=== PATIENT | male | born 1960 | race Asian ===

== ENCOUNTER 2024-01-21 13:03 | Emergency (ER) | payer MEDICARE, SELFPAY ==
[2024-01-21] VITALS (15 sets, daily range): BP systolic 108–164; BP diastolic 65–77; PULSE 66–75; RESP 16; TEMP 36.4–36.6; O2SAT 97–99; BMI 25.2
[2024-01-21 13:44] LABS: Add Manual Diff / Slide Review NO; Basophils Absolute Auto 0 /uL (0-100); Basophils Percent Auto 0.5 % (0-2); Eosinophils Absolute Auto 200 /uL (0-450); Eosinophils Percent Auto 3.6 % (2-4); Hematocrit 37.2 % (41-53); Hemoglobin 11.8 g/dL (13.5-17.5); Lymphocytes Absolute Auto 2000 /uL (1100-4500); Lymphocytes Percent Auto 34.5 % (25-40); Mean Corpuscular HGB Conc 31.6 % (30-36); Mean Corpuscular Hemoglobin 22.4 PG (26-34); Mean Corpuscular Volume 70.8 fL (80-100); Monocytes Absolute Auto 400 /uL (0-900); Monocytes Percent Auto 6.2 % (3-14); Neutrophils Absolute Auto 3200 /uL (1500-7000); Neutrophils Percent Auto 55.2 % (50-75); Platelet Count 92 X10^3/uL (150-400); Red Blood Cell Count 5.26 X10^6/uL (4.5-5.9); Red Cell Distribution Width 13.6 % (11.6-14.8); White Blood Cell Count 5.8 X10^3/uL (4.5-11.0)
[2024-01-21 13:52] LABS: Alanine Aminotransferase 100 IU/L (<50); Albumin 3.7 g/dL (3.5-5.0); Alkaline Phosphatase 178 U/L (38-126); Aspartate Aminotransferase 102 IU/L (17-59); BUN Creatinine Ratio 15.7 (6-22); Bilirubin Total 1.2 mg/dL (0.2-1.3); Blood Urea Nitrogen 14 mg/dL (9-20); Calcium 8.7 mg/dL (8.4-10.2); Carbon Dioxide 26 mmol/L (22-32); Chloride 101 mmol/L (98-107); Estimated Glomerular Filt Rate > 60 mL/min (>60); Globulin 3.8 g/dL (1.7-4.1); Glucose 387 mg/dL (80-110); HEMOLYSIS < 15 (0-50); Lipase 137 U/L (23-300); Potassium 4.2 mmol/L (3.4-5.1); Sodium 132 mmol/L (137-145); Total Protein 7.5 g/dL (6.3-8.2)
--- NOTE | 2024-01-21 14:36 | EKG_ITS ---
[address] [address] Test Date: 2024-01-21 Pat Name: kimberlyn Calixto Department: [facility] Room: Gender: Male Label Stamper: ROSENDA : 1960 Requested By: Order Number: [id number] Reading MD: Raymond Kumar MD Measurements Intervals [place] Rate: 70 P: 59 HI: 180 QRS: 28 QRSD: 80 T: 25 QT: 386 QTc: 416 Interpretive Statements Normal sinus rhythm Electronically Signed On 01-22-2024 8:35:29 PDT by Raymond Kumar MD
--- NOTE | 2024-01-21 16:27 | ED.ABDPAIN ---
HPI - Abdominal Pain General Chief Complaint: Abdominal Pain Stated Complaint: tired abd pain not feeling well Time Seen by Provider: 01/21/24 15:06 Source: patient Mode of arrival: Ambulatory History of Present Illness HPI narrative: Patient 63-year-old male history of diabetes, admits to drinking alcohol daily but says it is only 1 can, presents today with abdominal pain. Does not appear that he is having any now. He has no nausea or vomiting. No chest pain or shortness of breath. Related Data Allergies Allergy/AdvReac Type Severity Reaction Status Date / Time No Known Drug Allergies Allergy Verified 01/21/24 13:10 Patient History Social History Smoking Status: Current every day smoker Smoking Status: Current every day smoker alcohol intake frequency: 0-2 drinks per day Substance Use Type: does not use Exam Initial Vital Signs Initial Vital Signs: Vital Signs Temperature 97.5 F L 01/21/24 13:10 Pulse Rate 75 01/21/24 13:10 Respiratory Rate 16 01/21/24 13:10 Blood Pressure 108/73 01/21/24 13:10 Pulse Oximetry 99 01/21/24 13:10 Oxygen Delivery Method Room Air 01/21/24 13:10 GENERAL: Alert 63-year-old male and in no acute distress. HEENT: Head atraumatic,EOMI, pupils reactive, face symmetric, moist mucous membranes CARDIOVASCULAR: Regular rate and rhythm without murmurs, rubs or gallops. RESPIRATORY: Breath sounds equal bilaterally, no wheezes rales or rhonchi. ABDOMEN: Soft, nontender. Normoactive bowel sounds all 4 quadrants. No guarding or rebound. Negative hepatomegaly EXTREMITIES: Normal range of motion, no clubbing or edema. Neurovascularly intact NEUROLOGICAL: Alert and oriented x4.Normal gait and speech. Cranial nerves II through XII grossly intact. No tremor SKIN: Warm, dry, no laceration, no petechiae, no rashes or lesions. Course Orders Ordered: ED Orders 01/21/24 13:16 EKG-12 Lead Stat 01/21/24 13:31 Complete Blood Count AUTO DIFF Stat Comprehensive Metabolic Panel Stat Lipase Stat 01/21/24 16:39 CT abdomen pelvis w con Stat Ondansetron HCl (Ondansetron 4 Mg/2 Ml Inj) 4 mg IV NOW PRN PRN Reason: Nausea And Vomiting Ondansetron HCl (Ondansetron 4 Mg Odt) 4 mg PO NOW PRN PRN Reason: Nausea And Vomiting Vital Signs Vital signs: Vital Signs - 8 hr 01/21/24 13:10 01/21/24 14:25 01/21/24 14:26 Temperature 97.5 F L Pulse Rate 75 68 Respiratory Rate 16 Blood Pressure 108/73 Pulse Oximetry 99 97 99 Oxygen Delivery Method Room Air 01/21/24 14:26 01/21/24 14:30 01/21/24 14:30 Temperature Pulse Rate 73 Respiratory Rate Blood Pressure 127/68 128/71 Pulse Oximetry 98 Oxygen Delivery Method 01/21/24 15:00 01/21/24 15:00 01/21/24 15:30 Temperature Pulse Rate 72 68 Respiratory Rate Blood Pressure 124/68 Pulse Oximetry 98 98 Oxygen Delivery Method 01/21/24 15:30 01/21/24 16:00 01/21/24 16:00 Temperature Pulse Rate 66 Respiratory Rate Blood Pressure 144/77 H 147/77 H Pulse Oximetry 99 Oxygen Delivery Method 01/21/24 16:30 01/21/24 16:30 Temperature Pulse Rate 71 Respiratory Rate Blood Pressure 125/73 Pulse Oximetry 98 Oxygen Delivery Method MDM - Abdominal Pain Lab Data 01/21/24 13:31 01/21/24 13:31 Labs: Lab Results 01/21/24 Range/Units 13:31 WBC 5.8 (4.5-11.0) X10^3/uL RBC 5.26 (4.5-5.9) X10^6/uL Hgb 11.8 L (13.5-17.5) g/dL Hct 37.2 L (41-53) % MCV 70.8 L (80-100) fL MCH 22.4 L (26-34) PG MCHC 31.6 (30-36) % RDW 13.6 (11.6-14.8) % Plt Count 92 L (150-400) X10^3/uL Neut % (Auto) 55.2 (50-75) % Lymph % (Auto) 34.5 (25-40) % [place] % (Auto) 6.2 (3-14) % Eos % (Auto) 3.6 (2-4) % Baso % (Auto) 0.5 (0-2) % Neut # (Auto) 3200 (2072-7407) /uL Lymph # (Auto) 2000 (7198-7916) /uL [place] # (Auto) 400 (0-900) /uL Eos # (Auto) 200 (0-450) /uL Baso # (Auto) 0 (0-100) /uL Sodium 132 L (137-145) mmol/L Potassium 4.2 (3.4-5.1) mmol/L Chloride 101 (98-107) mmol/L Carbon Dioxide 26 (22-32) mmol/L BUN 14 (9-20) mg/dL Creatinine 0.89 (0.66-1.25) mg/dL Estimated GFR > 60 (>60) mL/min BUN/Creatinine Ratio 15.7 (6-22) Glucose 387 H (80-110) mg/dL Calcium 8.7 (8.4-10.2) mg/dL Total Bilirubin 1.2 (0.2-1.3) mg/dL AST 102 H (17-59) IU/L ALT 100 H (<50) IU/L Alkaline Phosphatase 178 H (38-126) U/L Total Protein 7.5 (6.3-8.2) g/dL Albumin 3.7 (3.5-5.0) g/dL Globulin 3.8 (1.7-4.1) g/dL Albumin/Globulin Ratio 1.0 (1.0-2.8) Lipase 137 (23-300) U/L Point of care testing: Point of Care Testing Glucose POC 279 Urine Dip Bedside Urine Glucose 1000 mg/dl Bedside Urine Bilirubin - Negative Bedside Urine Ketone +/- 5 Urine Specific [place] 1.015 Bedside Urine Occult Blood - Negative Bedside Urine pH 6.0 Bedside Urine Protein - Negative Bedside Urine Urobilinogen - Negative Bedside Urine Nitrite - Negative Bedside Urine Leukocytes - Negative Esterase Imaging Data CT scan - abdomen/pelvis: Radiologist's Impression: PROCEDURE: CT ABDOMEN PELVIS W CON INDICATIONS: ab pain elevated liver enzymes TECHNIQUE: After the administration of intravenous contrast, axial sections acquired from the lung bases to the pubic symphysis. Coronal and sagittal reformats were performed. For radiation dose reduction, the following was used: automated exposure control, adjustment of mA and/or kV according to patient size. COMPARISON: None. FINDINGS: Lower thorax: The lung bases are clear. Heart size normal. No hiatal hernia. Liver: The liver is diffusely decreased in attenuation without focal mass lesion. Liver is enlarged at 27 cm Biliary system: Dependent calcified stone noted as well. No intra or extrahepatic bile duct dilatation. Small hyperdensity adjacent to the nondependent wall may reflect small gallbladder wall polyp 4 mm. Pancreas: Unremarkable without mass or inflammation evident. Spleen: Normal in size and density. Adrenals: Normal morphology and density. Reproductive system: Unremarkable as visualized. Urinary system: Normal renal size and attenuation. No renal calculi, hydronephrosis, or solid mass present. Urinary bladder unremarkable. 1.2 cm right renal cortical cyst Gastrointestinal system: The bowel is unremarkable without evidence of bowel obstruction or inflammation. The stomach appears unremarkable. Appendix: Normal appendix identified. No evidence of appendicitis. Peritoneal spaces: Small retroperitoneal lymph nodes measure up to 1 cm with surrounding inflammatory changes. Vasculature: The IVC, aorta and iliac vasculature are unremarkable. Abdominal wall: Abdominal wall intact without evidence of ventral or inguinal hernias. Musculoskeletal: Normal bone mineralization. No acute fractures. IMPRESSION: Several small retroperitoneal lymph nodes all measure less than 1 cm with surrounding inflammatory changes may reflect acute retroperitoneal lymphadenitis. Hepatomegaly and hepatic fatty infiltration Cholelithiasis and small gallbladder wall polyp without evidence of acute cholecystitis Approved by: Malcolm García M.D. on 01/21/2024 at 17:22 ECG Data Attestation: I personally reviewed and interpreted this ECG as follows: Prior ECG tracings: not available for review Interpretation: Normal sinus rhythm rate 70 NH interval 180 QRS [address] changes no prior to compare MDM Narrative Medical decision making narrative: Patient is 63-year-old male history of diabetes presenting today with abdominal pain. Abdomen is soft and nontender on exam. Blood work has been reviewed he is found to have elevated AST of 102 ALT 100 alk-phos 178 bilirubin 1.2 lipase 137 Glucose 387, bicarb 26 creatinine 0.8 WBCs 5.8 hemoglobin 11.8 hematocrit 37.2 MCV 70 platelets 92 Patient is a known diabetic he is found to be hyperglycemic without evidence of DKA. He does not have an anion gap. He is found to have elevated liver enzymes with a normal bilirubin and a normal lipase. Abdomen is soft and minimally tender however he has a great historian. CT is ordered to rule out obstruction or mass. Imaging shows multiple retro peritoneal lymph nodes, less than 1 cm unclear significance also noted to have hepatomegaly with hepatic fatty infiltration EKGs no ischemia Patient is a elevated liver enzymes with hepatomegaly fatty infiltration possibly due to alcohol use he is also has some thrombocytopenia as well. CT does show retroperitoneal lymphadenitis in lymph nodes less than 1 cm. Unclear significance at this time. Recommend outpatient follow-up repeat imaging as needed Discharge Plan Departure Patient Disposition: Home Clinical Impression: Elevated liver enzymes, Acute lymphadenitis Activity Restrictions/Additional Instructions: *You have been diagnosed with elevated liver enzymes, abdominal lymph nodes *What to do: At this time please have your lymph nodes followed up with another CT and with your primary care provider. Please have repeat blood work in regards to your liver enzymes as well. Alcohol does not help liver is any decrease your alcohol *Continue to take medications as directed *Follow up with your primary care provider in 2-3 days or call [phone] *Return to ER if you should have increasing abdominal pain nausea vomiting fever or any new, worsening or concerning symptoms Stand Alone Forms: Patient Portal/API
--- NOTE | 2024-01-21 16:39 | DI.CT.S_ITS ---
PROCEDURE: CT ABDOMEN PELVIS W CON INDICATIONS: ab pain elevated liver enzymes TECHNIQUE: After the administration of intravenous contrast, axial sections acquired from the lung bases to the pubic symphysis. Coronal and sagittal reformats were performed. For radiation dose reduction, the following was used: automated exposure control, adjustment of mA and/or kV according to patient size. COMPARISON: None. FINDINGS: Lower thorax: The lung bases are clear. Heart size normal. No hiatal hernia. Liver: The liver is diffusely decreased in attenuation without focal mass lesion. Liver is enlarged at 27 cm Biliary system: Dependent calcified stone noted as well. No intra or extrahepatic bile duct dilatation. Small hyperdensity adjacent to the nondependent wall may reflect small gallbladder wall polyp 4 mm. Pancreas: Unremarkable without mass or inflammation evident. Spleen: Normal in size and density. Adrenals: Normal morphology and density. Reproductive system: Unremarkable as visualized. Urinary system: Normal renal size and attenuation. No renal calculi, hydronephrosis, or solid mass present. Urinary bladder unremarkable. 1.2 cm right renal cortical cyst Gastrointestinal system: The bowel is unremarkable without evidence of bowel obstruction or inflammation. The stomach appears unremarkable. Appendix: Normal appendix identified. No evidence of appendicitis. Peritoneal spaces: Small retroperitoneal lymph nodes measure up to 1 cm with surrounding inflammatory changes. Vasculature: The IVC, aorta and iliac vasculature are unremarkable. Abdominal wall: Abdominal wall intact without evidence of ventral or inguinal hernias. Musculoskeletal: Normal bone mineralization. No acute fractures. IMPRESSION: Several small retroperitoneal lymph nodes all measure less than 1 cm with surrounding inflammatory changes may reflect acute retroperitoneal lymphadenitis. Hepatomegaly and hepatic fatty infiltration Cholelithiasis and small gallbladder wall polyp without evidence of acute cholecystitis Approved by: Malcolm García M.D. on 01/21/2024 at 17:22
== END 2024-01-21 19:22 | disposition home or self-care (01) ==
PROVIDERS: Emergency Provider Emergency Medicine
DX: L04.9 Acute lymphadenitis, unspecified (principal); R74.8 Abnormal levels of other serum enzymes; R10.9 Unspecified abdominal pain
CPT/HCPCS: 36415; 74177; 80053; 81003; 82962; 83690; 85025; 93005; 99283; 99284; Q9967

== ENCOUNTER → 2024-03-07 13:01 | Outpatient (CLI) | payer MEDICARE, MEDICAID, SELFPAY ==
--- NOTE | 2024-03-07 13:05 | DI.RAD.S_ITS ---
PROCEDURE: XR CHEST 2V INDICATIONS: COUGH TECHNIQUE: 2 views of the chest were acquired. COMPARISON: None. FINDINGS: Heart, mediastinum and pulmonary vascular: Heart is normal in size and configuration. Mediastinum is unremarkable. Pulmonary vascular is normal. Lungs: Clear Pleural spaces: Normal-no effusions or pneumothorax. Bones and soft tissues: Normal IMPRESSION: Normal chest. Dictated by: Raymond Julio M.D. on 03/08/2024 at 12:11 Approved by: Raymond Julio M.D. on 03/08/2024 at 12:11
== END ==
PROVIDERS: Referring Provider Family Medicine; Visit Provider Family Medicine
DX: R05.1 Acute cough (principal)
CPT/HCPCS: 71046